=== PATIENT | female | born 1960 | race Hispanic/Latino ===

== ENCOUNTER 2023-08-20 02:53 | Day surgery (SDC) | payer OTHER, SELFPAY ==
[2023-08-12 08:31] VITALS: BMI 19.1
--- NOTE | 2023-08-18 12:02 | SUR.PREOP ---
Patient called regarding upcoming procedure. Message left on patient's voicemail regarding preop instructions, appointment times, and procedure prep.
--- NOTE | 2023-08-19 12:55 | PM.HPGS ---
History of Present Illness History of Present Illness Consent: Risks, benefits, and alternatives have been discussed and questions answered. Patient agrees to proceed with procedure. Chief complaint: neoplasm screening Narrative: Jennie Vickers is a 63 year old female Referred for colon cancer screening. Review of Systems Review of Systems: All systems reviewed & are unremarkable except as noted in HPI and below PMFSH Social History Social History Smoking status: Never smoker Alcohol intake: current Drinks per week: 2 Alcohol use details: BEERS Substance use: never Substance use type: does not use Living arrangements: with family Spiritual care concerns: No Meds Home Medications and Allergies Home Medications Medication Instructions Recorded Confirmed Type ascorbic acid (vitamin C) 500 mg 500 mg PO DAILY 08/12/23 08/12/23 History tablet coQ10 (ubiquinol) 200 mg capsule 200 mg PO DAILY 08/12/23 08/12/23 History lisinopril 10 mg tablet 10 mg PO DAILY 08/12/23 08/12/23 History metformin 850 mg tablet 850 mg PO BID 08/12/23 08/12/23 History [id number]-[id number]-[id number] 1 tablet PO DAILY 08/12/23 08/12/23 History fumarate 18 mg-folic acid 400 mcg tablet (One-A-Day Women's Complete) omega-3 fatty acids-vitamin E 1 cap PO DAILY 08/12/23 08/12/23 History 1,000 mg capsule rosuvastatin 5 mg tablet 5 mg PO DAILY 08/12/23 08/12/23 History Allergies Allergy/AdvReac Type Severity Reaction Status Date / Time poison oak extract Allergy Intermediate Rash Verified 08/20/23 06:50 Exam Const: General: alert Orientation/consciousness: patient oriented x3 Resp: Auscultation: clear to auscultation bilaterally Cardio: Rhythm: regular rhythm GI: GI Palp: Yes Soft to palpation and No Tenderness to palpation present (GI) Neuro: General: patient oriented x3 Assessment and Plan Assessment and plan (1) Colon cancer screening: Code(s): Z12.11 - Encounter for screening for malignant neoplasm of colon Status: Acute Assessment and Plan: Colonoscopy with possible biopsy or polypectomy or cautery or injection of substances.
[2023-08-20 06:51] VITALS: BP 151/97; PULSE 80; RESP 20; TEMP 36.4; O2SAT 100
[2023-08-20 06:52] VITALS: BMI 18.9
[2023-08-20] MEDS: LACTATED RINGERS 1,000 ML 150 ML IV CONT (07:02)
[2023-08-20 07:03] LABS: Glucose Point of Care 106 mg/dl (65-105)
--- NOTE | 2023-08-20 07:13 | WPDANESEPPF ---
Anes - Initial Pre Proc Eval Procedure: Operation Date: 08/20/23 08:00 Proposed Procedures p Screening Colonoscopy - Richard Vargas MD Date/Time: 08/20/23 07:13 Surgeon: Richard Vargas MD Pre Op Diagnosis: neoplasm screening Patient Data Age: 63 Gender: F Height: 1.65 m Weight: 51.6 kg Last Vital Signs Temp 36.4 C L 08/20/23 06:51 Pulse 80 08/20/23 06:51 Resp 20 08/20/23 06:51 BP 151/97 H 08/20/23 06:51 Pulse Ox 100 08/20/23 06:51 O2 Del Method Room Air 08/20/23 06:51 Allergies Allergy/AdvReac Type Severity Reaction Status Date / Time poison oak extract Allergy Intermediate Rash Verified 08/20/23 06:50 Home Medications Medication Instructions Recorded Confirmed Type ascorbic acid (vitamin C) 500 mg 500 mg PO DAILY 08/12/23 08/12/23 History tablet coQ10 (ubiquinol) 200 mg capsule 200 mg PO DAILY 08/12/23 08/12/23 History lisinopril 10 mg tablet 10 mg PO DAILY 08/12/23 08/12/23 History metformin 850 mg tablet 850 mg PO BID 08/12/23 08/12/23 History [id number] 1 tablet PO DAILY 08/12/23 08/12/23 History fumarate 18 mg-folic acid 400 mcg tablet (One-A-Day Women's Complete) omega-3 fatty acids-vitamin E 1 cap PO DAILY 08/12/23 08/12/23 History 1,000 mg capsule rosuvastatin 5 mg tablet 5 mg PO DAILY 08/12/23 08/12/23 History Laboratory Tests 08/20/23 06:59 POC Capillary Glucose 106 H mg/dl (65-105) Patient hx anesthesia problems: none Family hx anesthesia problems: none Results Review: All pre-operative results and documents have been reviewed as part of the pre-operative evaluation. [facility] Past Medical History Medical History (Updated 08/20/23 @ 07:13 by Prashanth Godinez DO) Diabetes type 2, controlled GERD (gastroesophageal reflux disease) Hyperlipidemia Hypertension Surgical History Surgical History (Updated 08/20/23 @ 07:13 by Prashanth Godinez DO) History of hysterectomy Social History Social History Smoking status: Never smoker Alcohol intake: current Drinks per week: 2 Alcohol use details: BEERS Substance use: never Substance use type: does not use Living arrangements: with family Spiritual care concerns: No Anes - Eval Final PreProcedure Day of Procedure 08/20/23 07:13 Patient weight: normal Heart: regular rate and rhythm Lungs: clear to auscultation and normal air movement Airway: Mallampati scale class II Neurological: alert and oriented Last oral intake: >/= 8 hours ASA classification: III Emergent: no Anesthetic plan: proceed Anesthesia type and monitoring: general GIVS and standard monitoring Results Review: All pre-operative results and documents have been reviewed as part of the pre-operative evaluation. Informed Consent: The patient's anesthetic plan and its attendant risks and benefits were discussed with the patient/family/POA. Questions were solicited and answers provided to the satisfaction of the patient/family/POA.
[2023-08-20 08:12] VITALS: BP 112/69; PULSE 74; RESP 23; O2SAT 99
[2023-08-20 08:22] VITALS: BP 140/69; PULSE 68; RESP 21; O2SAT 100
[2023-08-20 08:32] VITALS: BP 132/78; PULSE 67; RESP 20; O2SAT 100
== END 2023-08-20 08:36 | disposition home or self-care (01) ==
PROVIDERS: Visit Provider Internal Medicine Gastroenterology
PROC: 0DJD8ZZ Inspection of Lower Intestinal Tract, Via Natural or Artificial Opening Endoscopic (ICD-10-PCS; CPT 45378; principal; 2023-08-20 08:00)
DX: Z12.11 Encounter for screening for malignant neoplasm of colon (principal); K64.8 Other hemorrhoids; E11.9 Type 2 diabetes mellitus without complications; E78.5 Hyperlipidemia, unspecified; I10 Essential (primary) hypertension; K21.9 Gastro-esophageal reflux disease without esophagitis; Z79.84 Long term (current) use of oral hypoglycemic drugs
CPT/HCPCS: 45378; 82948; J2704; J7120